=== PATIENT | male | born 1980 | race Caucasian/White ===

== ENCOUNTER → 2018-12-17 15:53 | Outpatient (CLI) | payer SELFPAY ==
--- NOTE | 2018-12-17 16:11 | DI.RAD.S_ITS ---
PROCEDURE: XR ANKLE RT MIN 3V INDICATIONS: right ankle injury TECHNIQUE: 3 views of the ankle were acquired. COMPARISON: None. FINDINGS: Bones: No fractures or dislocations. Ankle mortise is normally aligned. No suspicious bony lesions. Soft tissues: No tibiotalar joint effusion. Achilles tendon appears normal. IMPRESSION: Lateral soft tissue swelling but no fracture or traumatic subluxation is seen. Dictated by: Reji Bell M.D. on 12/17/2018 at 16:53 Approved by: Reji Bell M.D. on 12/17/2018 at 16:53
== END ==
PROVIDERS: Visit Provider Physician Assistant
DX: S99.911A Unspecified injury of right ankle, initial encounter (principal); M79.89 Other specified soft tissue disorders
CPT/HCPCS: 73610

== ENCOUNTER 2020-03-26 12:56 | Emergency (ER) | payer SELFPAY ==
[2020-03-26 13:00] VITALS: BP 140/78; PULSE 80; RESP 20; TEMP 36.6; O2SAT 100; BMI 32.5
[2020-03-26 14:30] VITALS: BP 177/78; PULSE 68; RESP 19; O2SAT 98
[2020-03-26 14:49] LABS: Add Manual Diff / Slide Review NO; Basophils Absolute Auto 0 /uL (0-100); Basophils Percent Auto 0.8 % (0-2); Eosinophils Absolute Auto 0 /uL (0-450); Eosinophils Percent Auto 0.3 % (2-4); Hematocrit 42.8 % (41-53); Hemoglobin 14.6 g/dL (13.5-17.5); Lymphocytes Absolute Auto 1000 /uL (1100-4500); Lymphocytes Percent Auto 15.8 % (25-40); Mean Corpuscular Hemoglobin 29.6 PG (26-34); Monocytes Absolute Auto 400 /uL (0-900); Monocytes Percent Auto 6.6 % (3-14); Neutrophils Absolute Auto 5000 /uL (1500-7000); Neutrophils Percent Auto 76.5 % (50-75); Platelet Count 236 X10^3/uL (150-400); Red Blood Cell Count 4.92 X10^6/uL (4.5-5.9); White Blood Cell Count 6.5 X10^3/uL (4.5-11.0)
[2020-03-26 15:02] LABS: Alanine Aminotransferase 21 IU/L (<50); Albumin 4.8 g/dL (3.5-5.0); Albumin Globulin Ratio 1.5 (1.0-2.8); Alkaline Phosphatase 53 U/L (38-126); Aspartate Aminotransferase 26 IU/L (17-59); BUN Creatinine Ratio 17.2 (6-22); Bilirubin Total 0.9 mg/dL (0.2-1.3); Blood Urea Nitrogen 15 mg/dL (9-20); Calcium 9.1 mg/dL (8.4-10.2); Carbon Dioxide 21 mmol/L (22-32); Chloride 106 mmol/L (98-107); Estimated Glomerular Filt Rate > 60.0 mL/min (>60); Globulin 3.2 g/dL (1.7-4.1); Glucose 93 mg/dL (70-100); HEMOLYSIS < 15 (0-50); Potassium 4.1 mmol/L (3.4-5.1); Sodium 137 mmol/L (137-145)
[2020-03-26 15:09] LABS: D Dimer < 200 ng/mL (<230)
[2020-03-26] MEDS: ALBUTEROL HFA 60 PUFF/8 GM INH INH (15:21)
[2020-03-26 15:37] VITALS: PULSE 78; RESP 16; O2SAT 100
--- NOTE | 2020-03-26 15:51 | ED.SOB ---
HPI - SOB/Dyspnea <Marybeth BauerJANEL - Last Filed: 03/26/20 19:28> General Chief Complaint: Shortness of Breath/Dyspnea Stated Complaint: sob/arms/lip tingling x3 days Time Seen by Provider: 03/26/20 14:02 Source: patient Mode of arrival: Ambulatory Limitations: no limitations History of Present Illness HPI Narrative: 39yo male presents emergency department for feeling shortness of breath when he takes a deep breath for the past 4-6 months, patient reports the sensation is intermittent. Patient states ?it feels like areas not getting to the bottom part of my lungs ?. He states he is able to exercise without shortness of breath, and perform all activities without difficulty. 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 Patient also states he notice a popping and clicking in his chest which is worse when he rotates his shoulders and his neck, he feels a pop and a twinge of pain and then the symptoms resolved. Occasionally is related to the shortness of breath. He states he was seen at [facility] on 03/21/2020 and evaluated with laboratory work and a chest x-ray, he was diagnosed with costochondritis and discharged home. Patient states he initially felt dizzy and short of breath when walking up to his car which prompted his visit to [facility]. Today he walked to his car and felt similar symptoms, he also noted that he had spasms in his hands as well as numbness and tingling in his hands and around his mouth when his was driving him to the hospital.. He denies hyperventilating at this time. Patient denies any history of blood clots, asthma, or any other health problems. Patient denies any fevers, chills, cough, history of allergies, nausea, vomiting, diarrhea, chest pain, abdominal pain, or any other concerns. Patient denies any history of PEs, recent travel, cancer, hormone supplements, or recent infections. Related Data Home Medications Medication Instructions Recorded Confirmed albuterol sulfate 90 mcg/actuation 2 puff INHALATION Q4-6H PRN 04/01/20 04/01/20 aerosol inhaler loratadine 10 mg tablet 10 mg PO DAILY 04/01/20 04/01/20 Previous Rx's Medication Instructions Recorded erythromycin 5 mg/gram (0.5 %) eye 1 cm EYE-RIGHT Q8H #1 gram 09/06/19 ointment fluticasone 250 mcg-salmeterol 50 1 inhalation INHALATION BID #60 04/01/20 mcg/dose blistr powdr for each inhalation Allergies Allergy/AdvReac Type Severity Reaction Status Date / Time No Known Drug Allergies Allergy Verified 04/01/20 08:37 Review of Systems <JANEL Rabago - Last Filed: 03/26/20 19:28> Review of Systems Narrative: REVIEW OF SYSTEMS: GENERAL: Denies fevers. HENT: No head trauma or hearing loss. EYES: No vision changes. CARDIOVASCULAR: No syncope. RESPIRATORY: Reports shortness of breath, see HPI. GASTROINTESTINAL: No nausea, vomiting, diarrhea, or constipation. MUSCULOSKELETAL: No weakness or injury. INTEGUMENTARY: No rash, lesions, or pruritus. NEURO: Reports numbness and tingling in his fingers today, see HPI. Patient History <JANEL Rabago - Last Filed: 03/26/20 19:28> Medical History No significant medical problems (Acute) Social History Smoking Status: Current some day smoker (social smoker, not often. ) alcohol intake: current (2-5 drinks per week ) substance use type: does not use Smoking Status: Current some day smoker alcohol intake frequency: a few times a week Substance Use Type: does not use Exam <JANEL Rabago - Last Filed: 03/26/20 19:28> Initial Vital Signs Initial Vital Signs: Vital Signs Temperature 97.9 F 03/26/20 13:00 Pulse Rate 80 03/26/20 13:00 Respiratory Rate 20 03/26/20 13:00 Blood Pressure 140/78 03/26/20 13:00 Pulse Oximetry 100 03/26/20 13:00 PHYSICAL EXAMINATION: GENERAL: Well groomed, alert, and cooperative. Anxious appearing, Answers questions promptly and appropriately. Vital signs noted. HENT: Normocephalic, atraumatic. Oropharynx without erythema. EYES: Conjunctiva pink, sclera white, no periorbital swelling. No discharge. CHEST: Normal to inspection and without deformities. Patient reports slight increased of discomfort with palpation to left costal sternal border. CARDIOVASCULAR: S1 and S2 sounds normal. Regular rate and rhythm, no murmurs, clicks, or bruits. RESPIRATORY: Normal respiratory rate, trachea midline, airway patent. No stridor, nasal flaring or accessory muscle use. Able to speak in full sentences. Lungs are clear in all webb without wheeze, rhonchi, or crackles. Occasional dry cough noted throughout examination. Patient reported mild improved symptoms after administration of albuterol inhaler. MUSCULOSKELETAL: Normal gait and coordination. Equal tone and mass bilaterally. EXTREMITIES: Moves all extremities. SKIN: Warm, dry, soft, appropriate color for ethnicity. No lesions, rashes, or wounds to visualized areas. NEURO: Alert and Oriented X 3. Good coordination. No ataxia or cognitive issues. PSYCH: Appropriate affect and mood. <Chandler Wynn MD - Last Filed: 04/04/20 07:56> Initial Vital Signs Initial Vital Signs: Vital Signs Temperature 97.9 F 03/26/20 13:00 Pulse Rate 80 03/26/20 13:00 Respiratory Rate 20 03/26/20 13:00 Blood Pressure 140/78 03/26/20 13:00 Pulse Oximetry 100 03/26/20 13:00 Scores <JANEL Rabago - Last Filed: 03/26/20 19:28> PERC Score Age greater than or equal to 50 years: No Heart rate greater than or equal to 100 bpm: No Room Air O2 Sat less than 95%: No Unilateral leg swelling: No Recent trauma or surgery: No Hemoptysis: No Prior PE or DVT: No Hormone Use: No Total PERC Score: 0 Wells' Criteria for PE Clinical signs and symptoms of DVT: No PE is #1 Dx or equally likely: No Heart rate > 100: No Immobilization at least 3 days or surg in previous 4 weeks: No History of PE or DVT: No Hemoptysis: No Malignancy w/Treatment within 6 months or palliative: No Wells' PE Score total: 0 Course <JANEL Rabago - Last Filed: 03/26/20 19:28> Course Course Narrative: I reviewed records from [facility] which indicate laboratory work is within normal limits EKG: Rate 76, AK interval 162, QTC 430. Normal sinus without ST elevation or depression, no T-wave inversion. Chest x-ray interpretation: Normal single-view chest. -No D-dimer was ordered at this visit, D-dimer was ordered to further rule out possibility of PE. Patient reported mild improvement of symptoms administration of albuterol. He stated ?I think I feel little better, I am unsure. I do not have that feeling at this time I will have to wait and see if I have this feeling again and see if the inhaler helps ?. Orders Ordered: Discontinued Medications Albuterol (Ventolin Hfa) 2 puff INH NOW ONE Stop: 03/26/20 14:19 Last Admin: 03/26/20 15:21 Dose: 2 puff Documented by: STHOMP Vital Signs Vital signs: Vital Signs - 8 hr 03/26/20 13:00 03/26/20 14:30 03/26/20 15:37 Temperature 97.9 F Pulse Rate 80 68 78 Respiratory Rate 20 19 16 Blood Pressure 140/78 Blood Pressure [Left Arm] 177/78 H Pulse Oximetry 100 98 100 03/26/20 15:52 Temperature Pulse Rate 75 Respiratory Rate 14 Blood Pressure Blood Pressure [Left Arm] 120/78 Pulse Oximetry 100 <Chandler Wynn MD - Last Filed: 04/04/20 07:56> Orders Ordered: Discontinued Medications Albuterol (Ventolin Hfa) 2 puff INH NOW ONE Stop: 03/26/20 14:19 Last Admin: 03/26/20 15:21 Dose: 2 puff Documented by: STHOMP Vital Signs Vital signs: Vital Signs - 8 hr 03/26/20 13:00 03/26/20 14:30 03/26/20 15:37 Temperature 97.9 F Pulse Rate 80 68 78 Respiratory Rate 20 19 16 Blood Pressure 140/78 Blood Pressure [Left Arm] 177/78 H Pulse Oximetry 100 98 100 03/26/20 15:52 Temperature Pulse Rate 75 Respiratory Rate 14 Blood Pressure Blood Pressure [Left Arm] 120/78 Pulse Oximetry 100 MDM - SOB/Dyspnea <JANEL Rabago - Last Filed: 03/26/20 19:28> Medical Records Attestation: I reviewed the patient's medical records. Lab Data Attestation: I reviewed the patient's lab results. Result diagrams: 03/26/20 14:40 03/26/20 14:40 Labs: Lab Results 03/26/20 03/26/20 03/26/20 Range/Units 14:40 14:40 14:40 WBC 6.5 (4.5-11.0) X10^3/uL RBC 4.92 (4.5-5.9) X10^6/uL Hgb 14.6 (13.5-17.5) g/dL Hct 42.8 (41-53) % MCV 87.0 (80-100) fL MCH 29.6 (26-34) PG MCHC 34.0 (30-36) % RDW 13.0 (11.6-14.8) % Plt Count 236 (150-400) X10^3/uL Neut % (Auto) 76.5 H (50-75) % Lymph % (Auto) 15.8 L (25-40) % Roosevelt % (Auto) 6.6 (3-14) % Eos % (Auto) 0.3 L (2-4) % Baso % (Auto) 0.8 (0-2) % Neut # (Auto) 5000 (2256-9654) /uL Lymph # (Auto) 1000 L (3271-5061) /uL Roosevelt # (Auto) 400 (0-900) /uL Eos # (Auto) 0 (0-450) /uL Baso # (Auto) 0 (0-100) /uL D-Dimer < 200 (<230) ng/mL Sodium 137 (137-145) mmol/L Potassium 4.1 (3.4-5.1) mmol/L Chloride 106 (98-107) mmol/L Carbon Dioxide 21 L (22-32) mmol/L BUN 15 (9-20) mg/dL Creatinine 0.87 (0.66-1.25) mg/dL Estimated GFR > 60.0 (>60) mL/min BUN/Creatinine Ratio 17.2 (6-22) Glucose 93 (70-100) mg/dL Calcium 9.1 (8.4-10.2) mg/dL Total Bilirubin 0.9 (0.2-1.3) mg/dL AST 26 (17-59) IU/L ALT 21 (<50) IU/L Alkaline Phosphatase 53 (38-126) U/L Total Protein 8.0 (6.3-8.2) g/dL Albumin 4.8 (3.5-5.0) g/dL Globulin 3.2 (1.7-4.1) g/dL Albumin/Globulin Ratio 1.5 (1.0-2.8) COVID-19 PCR (Not Detect) 03/26/20 Range/Units 14:50 WBC (4.5-11.0) X10^3/uL RBC (4.5-5.9) X10^6/uL Hgb (13.5-17.5) g/dL Hct (41-53) % MCV (80-100) fL MCH (26-34) PG MCHC (30-36) % RDW (11.6-14.8) % Plt Count (150-400) X10^3/uL Neut % (Auto) (50-75) % Lymph % (Auto) (25-40) % Roosevelt % (Auto) (3-14) % Eos % (Auto) (2-4) % Baso % (Auto) (0-2) % Neut # (Auto) (8312-4663) /uL Lymph # (Auto) (9469-4378) /uL Roosevelt # (Auto) (0-900) /uL Eos # (Auto) (0-450) /uL Baso # (Auto) (0-100) /uL D-Dimer (<230) ng/mL Sodium (137-145) mmol/L Potassium (3.4-5.1) mmol/L Chloride (98-107) mmol/L Carbon Dioxide (22-32) mmol/L BUN (9-20) mg/dL Creatinine (0.66-1.25) mg/dL Estimated GFR (>60) mL/min BUN/Creatinine Ratio (6-22) Glucose (70-100) mg/dL Calcium (8.4-10.2) mg/dL Total Bilirubin (0.2-1.3) mg/dL AST (17-59) IU/L ALT (<50) IU/L Alkaline Phosphatase (38-126) U/L Total Protein (6.3-8.2) g/dL Albumin (3.5-5.0) g/dL Globulin (1.7-4.1) g/dL Albumin/Globulin Ratio (1.0-2.8) COVID-19 PCR Not detected (Not Detect) MDM Narrative Medical decision making narrative: 39-year-old male presenting to the emergency department for repeat evaluation for a feeling of shortness of breath when he takes a deep breath for the past 4-6 months. Records were obtained from [facility] showing negative chest x-ray, non concerning EKG, and non-remarkable laboratory work. Due to patient's continued symptoms, I ordered a COVID-19 test, and albuterol trial, and repeat labs with a D-dimer to further rule out other causes. I suspect patient's symptoms are multifactorial including costochondritis (as he describes popping and a twinge of pain between his breast bone and ribs) and possibly reactive airway disease (feeling short of breath intermittently when he takes a deep breath, slight improvement with administration of albuterol, current allergy season) versus anxiety (reports of hyperventilation with carpopedal spasms), anxious demeanor, current pandemic, patient able to exercise vigorously without feelings of shortness of breath, long duration of symptoms). Less concern for cardiac etiology as patient's previous cardiac workup was negative, description of pain, and patient is low risk factors. Less concern for PE due to negative well's criteria, negative PERC score and negative D-dimer as well as slight improvement with albuterol. Patient was given an albuterol and spacer to take home and try this periodically. He was encouraged to focus on his breathing and slow his breathing down if he develops tingling in his hands. Patient was also in encouraged to take ibuprofen for the next 2 days to help with costochondritis. Patient was counseled extensively about the importance of establishing a following up with the primary care provider for further testing and monitoring if symptoms continue. Very strict ED return precautions given for new or worsening symptoms. Patient agreed to plan of care verbalized understanding. <Chandler Wynn MD - Last Filed: 04/04/20 07:56> Lab Data Labs: Lab Results 03/26/20 03/26/20 03/26/20 Range/Units 14:40 14:40 14:40 WBC 6.5 (4.5-11.0) X10^3/uL RBC 4.92 (4.5-5.9) X10^6/uL Hgb 14.6 (13.5-17.5) g/dL Hct 42.8 (41-53) % MCV 87.0 (80-100) fL MCH 29.6 (26-34) PG MCHC 34.0 (30-36) % RDW 13.0 (11.6-14.8) % Plt Count 236 (150-400) X10^3/uL Neut % (Auto) 76.5 H (50-75) % Lymph % (Auto) 15.8 L (25-40) % Roosevelt % (Auto) 6.6 (3-14) % Eos % (Auto) 0.3 L (2-4) % Baso % (Auto) 0.8 (0-2) % Neut # (Auto) 5000 (8129-7184) /uL Lymph # (Auto) 1000 L (4850-1977) /uL Roosevelt # (Auto) 400 (0-900) /uL Eos # (Auto) 0 (0-450) /uL Baso # (Auto) 0 (0-100) /uL D-Dimer < 200 (<230) ng/mL Sodium 137 (137-145) mmol/L Potassium 4.1 (3.4-5.1) mmol/L Chloride 106 (98-107) mmol/L Carbon Dioxide 21 L (22-32) mmol/L BUN 15 (9-20) mg/dL Creatinine 0.87 (0.66-1.25) mg/dL Estimated GFR > 60.0 (>60) mL/min BUN/Creatinine Ratio 17.2 (6-22) Glucose 93 (70-100) mg/dL Calcium 9.1 (8.4-10.2) mg/dL Total Bilirubin 0.9 (0.2-1.3) mg/dL AST 26 (17-59) IU/L ALT 21 (<50) IU/L Alkaline Phosphatase 53 (38-126) U/L Total Protein 8.0 (6.3-8.2) g/dL Albumin 4.8 (3.5-5.0) g/dL Globulin 3.2 (1.7-4.1) g/dL Albumin/Globulin Ratio 1.5 (1.0-2.8) COVID-19 PCR (Not Detect) 03/26/ Range/Units 14:50 WBC (4.5-11.0) X10^3/uL RBC (4.5-5.9) X10^6/uL Hgb (13.5-17.5) g/dL Hct (41-53) % MCV (80-100) fL MCH (26-34) PG MCHC (30-36) % RDW (11.6-14.8) % Plt Count (150-400) X10^3/uL Neut % (Auto) (50-75) % Lymph % (Auto) (25-40) % Roosevelt % (Auto) (3-14) % Eos % (Auto) (2-4) % Baso % (Auto) (0-2) % Neut # (Auto) (6500-8670) /uL Lymph # (Auto) (7793-1062) /uL Roosevelt # (Auto) (0-900) /uL Eos # (Auto) (0-450) /uL Baso # (Auto) (0-100) /uL D-Dimer (<230) ng/mL Sodium (137-145) mmol/L Potassium (3.4-5.1) mmol/L Chloride (98-107) mmol/L Carbon Dioxide (22-32) mmol/L BUN (9-20) mg/dL Creatinine (0.66-1.25) mg/dL Estimated GFR (>60) mL/min BUN/Creatinine Ratio (6-22) Glucose (70-100) mg/dL Calcium (8.4-10.2) mg/dL Total Bilirubin (0.2-1.3) mg/dL AST (17-59) IU/L ALT (<50) IU/L Alkaline Phosphatase (38-126) U/L Total Protein (6.3-8.2) g/dL Albumin (3.5-5.0) g/dL Globulin (1.7-4.1) g/dL Albumin/Globulin Ratio (1.0-2.8) COVID-19 PCR Not detected (Not Detect) Discharge Plan Departure Patient Disposition: Home Clinical Impression: Costochondritis RAD (reactive airway disease) Qualifiers: Asthma severity: mild Asthma persistence: intermittent Asthma complication type: uncomplicated Qualified Code(s): J45.20 - Mild intermittent asthma, uncomplicated Discharge Date/Time: 03/26/20 16:12 Instructions: DI for Costochondritis, DI for Reactive Airway Disease-Adult, Coronavirus Disease 2019, Can COVID-19 be prevented? Activity Restrictions/Additional Instructions: Thank you for entrusting me with your care today. As discussed, your laboratory work is non-remarkable, your D-dimer blood test is negative (this test looks for evidence of a blood clot). I am unsure the exact cause of this discomfort. I believe that you do have some costochondritis, inflammation between your ribs and chest bone, which is the popping that you hear and feel in your chest. It is possible that you also may have reactive airway disease which is inflammation of your large airways, this can be from chemical fumes or allergies. I have given you an albuterol inhaler, take this when you develops symptoms every 4-6 hours. This may cause a racing heart and jitters, this is a side effect of medication. Additionally, I recommend taking loratadine 10 mg which is an [id number] allergy medication for the next week to see if symptoms improve. You have been tested for COVID-19. This test may take 1-6 days for results to return, we will call you with these results. Please remain in quarantine with self isolation at home for 3 days after your symptoms have completely resolved. Drink lots of fluids, take Tylenol for fever, get extra rest, clean all surfaces, cover your cough, wash your hands frequently, and avoid sharing any personal items. If you need to seek medical care, please call the clinic or the emergency department before your arrival. Please establish in follow-up with your primary care provider in the next 1-2 weeks for further evaluation if your symptoms continue. Return emergency department for any new or worsening symptoms such as chest pain, shortness of breath, syncope, high fevers, wheezing, or any other concerns. Prescriptions: No Action erythromycin 5 mg/gram (0.5 %) ointment 1 cm EYE-RIGHT Q8H Qty: 1 RF: 0 albuterol sulfate [Ventolin HFA] 90 mcg/actuation HFA aerosol inhaler 2 puff INHALATION Q4-6H PRNRF: 0 loratadine [Claritin] 10 mg tablet 10 mg PO DAILY RF: 0 fluticasone propion-salmeterol [Advair Diskus] 250-50 mcg/dose blister with device 1 inhalation INHALATION BID Qty: 60 RF: 1 Referrals: Denice Martino ARNP [[employer] Privacy Consultant] -
[2020-03-26 15:52] VITALS: BP 120/78; PULSE 75; RESP 14; O2SAT 100
[2020-03-27 01:01] LABS: COVID19 Sendout Not Detected (Not Detect)
== END 2020-03-26 16:12 | disposition home or self-care (01) ==
PROVIDERS: Emergency Provider Nurse Practitioner
DX: M94.0 Chondrocostal junction syndrome [Tietze] (principal); J45.20 Mild intermittent asthma, uncomplicated; R06.02 Shortness of breath
CPT/HCPCS: 80053; 85025; 85379; 87635; 94640; 99283

== ENCOUNTER → 2023-03-27 15:39 | Outpatient (CLI) | payer SELFPAY ==
--- NOTE | 2023-03-27 15:41 | DI.RAD.S_ITS ---
PROCEDURE: XR FOOT LT MIN 3V INDICATIONS: Acute left ankle sprain, midfoot pain TECHNIQUE: 3 views of the foot were acquired. COMPARISON: None. FINDINGS: Bones: Acute mildly displaced oblique fracture of the 5th metatarsal diaphysis. No definite intra-articular extension of the fracture plane identified. Soft tissues: Possible tibiotalar joint effusion. IMPRESSION: Acute mildly displaced 5th metatarsal fracture. Dictated by: Danny Mcelroy M.D. on 03/27/2023 at 17:28 Approved by: Danny Mcelroy M.D. on 03/27/2023 at 17:31
--- NOTE | 2023-03-27 15:41 | DI.RAD.S_ITS ---
PROCEDURE: XR ANKLE LT MIN 3V INDICATIONS: Eval L ankle TECHNIQUE: 3 views of the ankle were acquired. COMPARISON: [facility], CR, XR ANKLE RT MIN 3V, 12/17/2018, 16:14. FINDINGS: Bones: There is a minimally displaced fracture at the tip of the lateral malleolus. No other fracture or dislocation. Soft tissues: There is moderate lateral malleolar soft tissue swelling. There is a small tibiotalar joint effusion. IMPRESSION: Lateral malleolar avulsion fracture with soft tissue swelling and joint effusion. Dictated by: Nieves Bonner M.D. on 03/27/2023 at 17:11 Approved by: Nieves Bonner M.D. on 03/27/2023 at 17:14
== END ==
PROVIDERS: PCP Family Medicine; Referring Provider Family Medicine; Visit Provider Family Medicine
DX: S92.352A Displaced fracture of fifth metatarsal bone, left foot, initial encounter for closed fracture (principal); S82.65XA Nondisplaced fracture of lateral malleolus of left fibula, initial encounter for closed fracture; S93.402A Sprain of unspecified ligament of left ankle, initial encounter; M25.572 Pain in left ankle and joints of left foot; M79.672 Pain in left foot; X58.XXXA Exposure to other specified factors, initial encounter
CPT/HCPCS: 73610; 73630

== ENCOUNTER 2024-02-02 13:50 | Emergency (ER) | payer SELFPAY ==
[2024-02-02 14:08] VITALS: BP 110/76; PULSE 86; RESP 20; TEMP 36.7; O2SAT 99; BMI 36.4
--- NOTE | 2024-02-02 15:24 | ED.GIBLEED ---
HPI - GI Bleed <Kajal Crisostomo PA-C - Last Filed: 02/02/24 16:36> General Chief complaint: GI Bleed Stated complaint: per pt has H pylori, blood in stool Time Seen by Provider: 02/02/24 15:04 Source: patient Mode of arrival: Ambulatory History of Present Illness HPI Narrative: Patient is a 43-year-old male presenting for evaluation of blood in stool for the past 2 days. He reports that he noted blood in the toilet bowl as well as on the toilet paper. He reports that it was dark red color. He denies feeling any dizziness or lightheadedness. He denies noticing any clots, nor any bleeding into his underwear. He reports that he was traveling in [facility] in December and developed persistent diarrhea after eating. He was given 5 days of ciprofloxacin and felt his stomach discomfort improve. He was also diagnosed with H pylori and given two antibiotics and a PPI to start for 2 weeks. He returned to the [facility] on 01/20 and has begun H. pylori treatment 1 week ago. He does note improvement in his diarrhea since completing ciprofloxacin and starting H pylori treatment. He states he has 1 soft stool daily now. He denies any stomach pain nor nausea or vomiting. He denies any fever or body aches. He denies any pain or itching with defecation or abdominal pain. He contacted triage nurse and was directed to come to the ED due to concern for blood in stool. Related Data Allergies Allergy/AdvReac Type Severity Reaction Status Date / Time No Known Drug Allergies Allergy Verified 01/30/24 14:00 Review of Systems <Kajal Crisostomo PA-C - Last Filed: 02/02/24 16:36> Review of Systems Narrative: see HPI Patient History <Kajal Crisostomo PA-C - Last Filed: 02/02/24 16:36> Medical History Left foot pain Left ankle sprain Malaria (~2015) No significant medical problems Surgical History History of hernia surgery (~1992) Family History Mother Cancer Diabetes mellitus Social History Smoking Status: Current some day smoker alcohol intake: current (2-5 drinks per week ) substance use type: does not use Smoking Status: Current some day smoker alcohol intake frequency: a few times a week Substance Use Type: does not use Exam <Kajal Crisostomo PA-C - Last Filed: 02/02/24 16:36> Initial Vital Signs Initial Vital Signs: Vital Signs Temperature 98.1 F 02/02/24 14:08 Pulse Rate 86 02/02/24 14:08 Respiratory Rate 20 02/02/24 14:08 Blood Pressure 110/76 02/02/24 14:08 Pulse Oximetry 99 02/02/24 14:08 Oxygen Delivery Method Room Air 02/02/24 14:08 GENERAL: 43 year old patient appears stated age. Well-developed patient, in no acute distress. HEAD: Atraumatic. Normocephalic. EYES: Pupils equal round bilaterally. No scleral icterus. No injection or drainage. NECK: Trachea midline. Non tender. CARDIOVASCULAR: Regular rate and rhythm without murmurs, gallops, or rubs. RESPIRATORY: Clear to auscultation. Breath sounds equal bilaterally. No wheezes, rales, or rhonchi. GASTROINTESTINAL: Bowel sounds x4, Abdomen soft, non-tender, nondistended in all 4 quadrants. No epigastric tenderness noted. RN Adriana present as weave room supervisor. Digital rectal exam showed some blood around anus as well as small reducible hemorrhoid at the posterior aspect of anus, no evidence of thrombosis noted, hemoccult positive NEURO: AOx3. SKIN: No rash or erythema of visible areas <Ricardo Dubon MD - Last Filed: 02/02/24 18:11> Initial Vital Signs Initial Vital Signs: Vital Signs Temperature 98.1 F 02/02/24 14:08 Pulse Rate 86 02/02/24 14:08 Respiratory Rate 20 02/02/24 14:08 Blood Pressure 110/76 02/02/24 14:08 Pulse Oximetry 99 02/02/24 14:08 Oxygen Delivery Method Room Air 02/02/24 14:08 Course <Kajal Crisostomo PA-C - Last Filed: 02/02/24 16:36> Orders Ordered: ED Orders 02/02/24 16:00 CBC Auto Diff [Complete Blood Count AUTO DIFF] Stat Vital Signs Vital signs: Vital Signs - 8 hr 02/02/24 14:08 02/02/24 16:11 02/02/24 16:35 Temperature 98.1 F 98.1 F Pulse Rate 86 70 68 Respiratory Rate 20 20 14 Blood Pressure 110/76 126/70 107/68 Pulse Oximetry 99 99 99 Oxygen Delivery Method Room Air Room Air Room Air <Ricardo Dubon MD - Last Filed: 02/02/24 18:11> Orders Ordered: ED Orders 02/02/24 16:00 CBC Auto Diff [Complete Blood Count AUTO DIFF] Stat Vital Signs Vital signs: Vital Signs - 8 hr 02/02/24 14:08 02/02/24 16:11 02/02/24 16:35 Temperature 98.1 F 98.1 F Pulse Rate 86 70 68 Respiratory Rate 20 20 14 Blood Pressure 110/76 126/70 107/68 Pulse Oximetry 99 99 99 Oxygen Delivery Method Room Air Room Air Room Air MDM - GI Bleed <Kajal Crisostomo PA-C - Last Filed: 02/02/24 16:36> Lab Data 02/02/24 16:00 Labs: Lab Results 02/02/24 Range/Units 16:00 WBC 6.9 (4.5-11.0) X10^3/uL RBC 4.95 (4.5-5.9) X10^6/uL Hgb 14.6 (13.5-17.5) g/dL Hct 42.3 (41-53) % MCV 85.3 (80-100) fL MCH 29.5 (26-34) PG MCHC 34.6 (30-36) % RDW 13.5 (11.6-14.8) % Plt Count 312 (150-400) X10^3/uL Neut % (Auto) 54.2 (50-75) % Lymph % (Auto) 34.6 (25-40) % Sutton % (Auto) 9.3 (3-14) % Eos % (Auto) 1.4 L (2-4) % Baso % (Auto) 0.5 (0-2) % Neut # (Auto) 3800 (3285-1300) /uL Lymph # (Auto) 2400 (3370-8214) /uL Sutton # (Auto) 600 (0-900) /uL Eos # (Auto) 100 (0-450) /uL Baso # (Auto) 0 (0-100) /uL Point of Care Testing Stool Occult Blood Positive MDM Narrative Medical decision making narrative: Patient is a 43-year-old male presenting for evaluation of 2 days of noting blood in stool. He denies dizziness, abdominal pain or blood in his underwear. Of note, he was treated for diarrhea with ciprofloxacin in December while traveling in [facility]. He was also diagnosed with H pylori at that time and started two antibiotics as well as a PPI for the last week. He has noted general improvement in his diarrhea, stating he is now having a soft stool once daily. Physical exam shows presence of hemorrhoids in the posterior aspect of the anus and nontender abdominal exam. Multiple etiologies for patient's symptoms considered including, but not limited to: Ulcer, GI bleed, hemorrhoids Prior Charts reviewed: Reviewed note with Cayla Dela Cruz on 01/28 with plan to continue H pylori treatment and follow up for repeat testing in 6 weeks. Labs reviewed and interpreted by myself: CBC within normal limits Discussed with patient's symptoms most consistent with hemorrhoid today. History and physical exam and CBC were reassuring. Discussed with patient he can consider using preparation H to help improve bleeding, as well as decreasing time spent on toilet to reduce hemorrhoids. I recommend continued follow up with PCP regarding H pylori. Discussed with patient if bleeding worsens or if he develops dizziness lightheadedness or abdominal pain to follow up promptly to the emergency department. He verbalizes understanding and agreement. Findings and discharge diagnosis discussed with patient/family followed by verbalization of understanding Return precautions discussed with patient/family whom verbalize understanding of diagnosis and plan <Ricardo Dubon MD - Last Filed: 02/02/24 18:11> Lab Data Labs: Lab Results 02/02/24 Range/Units 16:00 WBC 6.9 (4.5-11.0) X10^3/uL RBC 4.95 (4.5-5.9) X10^6/uL Hgb 14.6 (13.5-17.5) g/dL Hct 42.3 (41-53) % MCV 85.3 (80-100) fL MCH 29.5 (26-34) PG MCHC 34.6 (30-36) % RDW 13.5 (11.6-14.8) % Plt Count 312 (150-400) X10^3/uL Neut % (Auto) 54.2 (50-75) % Lymph % (Auto) 34.6 (25-40) % Sutton % (Auto) 9.3 (3-14) % Eos % (Auto) 1.4 L (2-4) % Baso % (Auto) 0.5 (0-2) % Neut # (Auto) 3800 (6902-8288) /uL Lymph # (Auto) 2400 (9870-6960) /uL Sutton # (Auto) 600 (0-900) /uL Eos # (Auto) 100 (0-450) /uL Baso # (Auto) 0 (0-100) /uL Point of Care Testing Stool Occult Blood Positive Discharge Plan Departure Patient Disposition: Home Clinical Impression: Hemorrhoids Qualifiers: Hemorrhoid type: first degree Qualified Code(s): K64.0 - First degree hemorrhoids Instructions: DI for Hemorrhoids Activity Restrictions/Additional Instructions: Thank you for coming in today for your care. You have been diagnosed with hemorrhoids as the cause for bleeding have noticed while on the toilet. You may consider treatment with [id number] ointments such as preparation H. we also discussed other techniques such as reducing time spent sitting on the toilet to reduced hemorrhoids and allow them to recede. Your blood work today and physical exam today were reassuring today. After discussion, we decided not to do CT imaging to reduce your exposure to radiation and your reassuring exam history and lab work. However, I encourage you to continue watching your symptoms and follow up promptly to the ED if you should develop lightheadedness or significant worsening bleeding or abdominal pain or other concerning signs or symptoms. *Please follow up with your primary care provider in 2-3 days, call for an appointment. Let them know you were seen in the Emergency Department and that we ask that you be seen in follow up. We will electronically transmit a record of today's note if your PCP is in our system Referrals: Francisco Leon, DO [Primary Care Provider] - Stand Alone Forms: Patient Portal/API ED Sign-out <Ricardo Dubon MD - Last Filed: 02/02/24 18:11> Cosign ED Attending Cosignature Attestation: I was immediately available in the department for consultation. Documentation has been reviewed. I agree with assessment and plan.
[2024-02-02 16:11] VITALS: BP 126/70; PULSE 70; RESP 20; TEMP 36.7; O2SAT 99
[2024-02-02 16:14] LABS: Eosinophils Absolute Auto 100 /uL (0-450); Monocytes Absolute Auto 600 /uL (0-900); Neutrophils Absolute Auto 3800 /uL (1500-7000); Red Cell Distribution Width 13.5 % (11.6-14.8)
[2024-02-02 16:19] LABS: Add Manual Diff / Slide Review NO; Basophils Absolute Auto 0 /uL (0-100); Basophils Percent Auto 0.5 % (0-2); Eosinophils Percent Auto 1.4 % (2-4); Hematocrit 42.3 % (41-53); Hemoglobin 14.6 g/dL (13.5-17.5); Lymphocytes Absolute Auto 2400 /uL (1100-4500); Lymphocytes Percent Auto 34.6 % (25-40); Mean Corpuscular HGB Conc 34.6 % (30-36); Mean Corpuscular Hemoglobin 29.5 PG (26-34); Mean Corpuscular Volume 85.3 fL (80-100); Monocytes Percent Auto 9.3 % (3-14); Neutrophils Percent Auto 54.2 % (50-75); Platelet Count 312 X10^3/uL (150-400); Red Blood Cell Count 4.95 X10^6/uL (4.5-5.9); White Blood Cell Count 6.9 X10^3/uL (4.5-11.0)
[2024-02-02 16:35] VITALS: BP 107/68; PULSE 68; RESP 14; O2SAT 99
== END 2024-02-02 16:39 | disposition home or self-care (01) ==
PROVIDERS: Emergency Provider Physician Assistant; PCP Family Medicine
DX: K64.0 First degree hemorrhoids (principal)
CPT/HCPCS: 36415; 82272; 85025; 99283

== ENCOUNTER → 2024-07-11 10:31 | Outpatient (CLI) | payer SELFPAY ==
[2024-07-11 11:54] LABS: Cholesterol 251 mg/dL (140-199); HDL Cholesterol 70 mg/dL (40-60); LDL Cholesterol Calculated 142 mg/dL (<100); Triglycerides 194 mg/dL (35-150)
== END ==
LOC: LAB 10:33
PROVIDERS: PCP Family Medicine; Referring Provider Family Medicine; Visit Provider Family Medicine
DX: E78.5 Hyperlipidemia, unspecified (principal); Z86.19 Personal history of other infectious and parasitic diseases
CPT/HCPCS: 36415; 80061; 87338

== ENCOUNTER → 2024-07-17 15:20 | Outpatient (CLI) | payer SELFPAY ==
--- NOTE | 2024-07-17 15:24 | DI.CT.S_ITS ---
PROCEDURE: CT CHEST HIGH RESOLUTION INDICATIONS: dyspnea on exertion, h/o paint spray exposure, eval for ILD TECHNIQUE: Noncontrast 1.0 and 5.0 mm thick contiguous axial sections from the pulmonary apex to the posterior costophrenic angles, with 7 mm thick coronal and sagittal MIP reformats. 1 mm thick dynamic expiratory images acquired through the upper, mid, and lower lungs. 1.0 mm thick axial sections acquired from the tobi to the posterior costophrenic angles in the prone end-inspiration position. For radiation dose reduction, the following was used: automated exposure control, adjustment of mA and/or kV according to patient size. COMPARISON: None. FINDINGS: Image quality: Diagnostic. Lower Neck: No enlarged lymph nodes. Thyroid: No thyroid nodules which require sonographic follow up, per consensus guidelines. Axillae: No enlarged lymph nodes. Chest Wall: Unremarkable. Bones: Unremarkable. Lungs and Pleura: No pneumothorax or pleural effusions. Juxtapleural nodule with smooth margins in the right middle lobe, most consistent with a benign intrapulmonary lymph node. No reticulation. No significant air trapping. Heart: Heart size is normal. No pericardial effusion. Thoracic Vessels: The aorta and pulmonary arteries demonstrate normal size. Mediastinum and [place]: No enlarged lymph nodes. Esophagus: No wall thickening. Mild hiatal hernia. Upper Abdomen: Visualized upper abdomen solid organs and bowel loops appear normal. IMPRESSION: No findings to explain the patient's dyspnea on exertion. No evidence of interstitial lung disease. Dictated by: Baljit Lantigua M.D. on 07/18/2024 at 9:58 Approved by: Baljit Lantigua M.D. on 07/18/2024 at 10:07
== END ==
LOC: CT 15:22
PROVIDERS: PCP Family Medicine; Referring Provider Internal Medicine Critical Care Medicine; Visit Provider Internal Medicine Critical Care Medicine
DX: K44.9 Diaphragmatic hernia without obstruction or gangrene (principal); R06.09 Other forms of dyspnea; R91.1 Solitary pulmonary nodule
CPT/HCPCS: 71250